=== PATIENT | male | born 1990 | race Caucasian/White ===

== ENCOUNTER 2017-03-29 23:24 | Emergency (ER) | payer MEDICAID, OTHER ==
[~2017-03-29] VITALS: Ht 177.8 cm; Wt 77.3 kg
[~2017-03-29 23:24] MED LIST: NO HOME MEDS
[2017-03-30] MEDS ORDERED: LIDOcaine 1.5% w/epinephrine 1:200,000 5ml ampul IJ ONE
[2017-03-30 00:38] VITALS: BP 137/84
== END 2017-03-30 00:40 | disposition home or self-care (01) ==
LOC: ER 23:24
DX: S31.821A Laceration without foreign body of left buttock, initial encounter (principal); Z72.0 Tobacco use; Z59.0 Homelessness; Z56.0 Unemployment, unspecified; W26.0XXA Contact with knife, initial encounter; Y93.89 Activity, other specified; Y92.481 Parking lot as the place of occurrence of the external cause; Y99.8 Other external cause status
CPT/HCPCS: 12002; 99283; A6255; J3490

== ENCOUNTER 2017-03-30 05:23 | Inpatient (IN) | payer MEDICAID, OTHER ==
[~2017-03-30] VITALS: Ht 177.8 cm; Wt 79.1 kg
[2017-03-30 06:19] LABS: BASOPHILS % (AUTO) 0.3 % (0-1); EOSINOPHILS % (AUTO) 0.4 % (0-6); HEMATOCRIT 36.2 % (42.0-52.0); HEMOGLOBIN 12.6 g/dl (14.0-17.9); LYMPHOCYTES # (AUTO) 1.4 X10'3 (1.1-4.8); LYMPHOCYTES % (AUTO) 14.6 % (21-51); MEAN CORPUSCULAR HEMOGLOBIN 29.4 PG (27.0-31.0); MEAN CORPUSCULAR HGB CONC 34.9 % (33.0-36.5); MEAN CORPUSCULAR VOLUME 84.2 FL (78-98); MEAN PLATELET VOLUME 8.2 FL (7.4-10.4); MONOCYTES # (AUTO) 0.7 X10'3 (0-0.9); MONOCYTES % (AUTO) 7.3 % (2-12); NEUTROPHILS # (AUTO) 7.4 X10'3 (1.8-7.7); NEUTROPHILS % (AUTO) 77.4 % (42-75); PLATELET COUNT 213 X10'3 (140-440); RED BLOOD COUNT 4.29 X10'6 (4.70-6.10); RED CELL DISTRIBUTION WIDTH 14.2 % (11.5-14.5); WHITE BLOOD COUNT 9.5 X10'3 (4.5-11.0)
[2017-03-30 06:30] LABS: INR 1.1 INR; PARTIAL THROMBOPLASTIN TIME 29 SECONDS (22-32); PROTHROMBIN TIME 10.9 SECONDS (9.0-12.0)
[2017-03-30 06:34] LABS: ALANINE AMINOTRANSFERASE 192 U/L (12-78); ALBUMIN 3.4 G/DL (3.4-5.0); ALBUMIN/GLOBULIN RATIO 1.1 (1.1-1.5); ALKALINE PHOSPHATASE 90 IU/L (46-116); ANION GAP 8 (8-16); ASPARTATE AMINO TRANSFERASE 65 U/L (10-37); BILIRUBIN,TOTAL 0.6 MG/DL (0.1-1.0); BLOOD UREA NITROGEN 14 MG/DL (7-18); BUN/CREATININE RATIO 16.3 (5.4-32.0); CALCIUM 8.4 MG/DL (8.5-10.1); CHLORIDE 106 MMOL/L (99-107); CREATININE 0.86 MG/DL (0.60-1.10); GLUCOSE 131 MG/DL (70-104); POTASSIUM 3.4 MMOL/L (3.5-5.1); SODIUM 144 MMOL/L (135-145); TOTAL CARBON DIOXIDE 29.7 MMOL/L (24-32); TOTAL PROTEIN 6.6 G/DL (6.4-8.2); eGFR > 90 ML/MIN
[2017-03-30] MEDS ORDERED: tranexamic acid inj. 1,000 MG in normal saline 100ml IV soln 90 ML IV ONE (06:35)
[2017-03-30] MEDS ORDERED: iohexol 300mg/ml 100ml inj. ONE (07:52)
[2017-03-30] MEDS ORDERED: vancomycin/NS 1 GM ADD-VANTAGE 250 ML IV SCH (08:00)
[2017-03-30] MEDS ORDERED: dextrose 50%-water 50ml dispensing syringe IV PRN (08:30)
[2017-03-30] MEDS ORDERED: magnesium 4gm in 100ml NS 100 ML IV PRN (08:30)
[2017-03-30] MEDS ORDERED: LORazepam 2 mg/ml vial IV PRN (08:30)
[2017-03-30] MEDS ORDERED: ondansetron/PF 4mg/2ml inj IV PRN (08:30)
[2017-03-30] MEDS ORDERED: magnesium 2GM in 50ml NS 50 ML IV PRN (08:30)
[2017-03-30] MEDS ORDERED: haloperidol lactate 5mg/ml inj IM PRN (08:30)
[2017-03-30] MEDS ORDERED: LORazepam 1 MG tablet PO PRN (08:30)
[2017-03-30] MEDS ORDERED: haloperidol 5mg tablet PO PRN (08:30)
[2017-03-30] MEDS ORDERED: potassium Cl 40MEQ/NS 500ml 500 ML IV PRN ×2 (08:30)
[2017-03-30] MEDS ORDERED: thiamine 100mg/ml 2ml inj. IV ONE (08:30)
[2017-03-30] MEDS ORDERED: morphine 2 MG/ML inj. syringe IV PRN ×2 (08:30)
[2017-03-30] MEDS ORDERED: magnesium hydroxide 30ml (MOM) UD suspension PO PRN (08:30)
[2017-03-30] MEDS ORDERED: HYDROcodone/acetaminophen 5mg/325mg tablet PO PRN (08:30)
[2017-03-30] MEDS ORDERED: magnesium Cl slow-release 64mg tablet PO PRN (08:30)
[2017-03-30] MEDS ORDERED: potassium Cl 20 mEq SR tablet PO PRN ×2 (08:30)
[2017-03-30] MEDS ORDERED: mag hydrox/Alum hydrox/simeth 30ml oral suspension PO PRN (08:30)
[2017-03-30] MEDS ORDERED: acetaminophen 325mg tablet PO PRN ×2 (08:30)
[2017-03-30 09:39] VITALS: BP 119/75
[2017-03-30 11:00] VITALS: BP 109/71
[2017-03-30] MEDS: normal saline 1000ml 1,000 ML IV SCH ×2 (11:38→18:26)
[2017-03-30] MEDS: nicotine 14mg patch - 24hr TD SCH (12:44)
[2017-03-30] MEDS: vancomycin inj 1,250 MG in normal saline 250ml IV soln 250 ML IV SCH ×2 (12:44→21:31)
[2017-03-30] MEDS: lactobacillus rhamnosus 10,000 MMU CELLS/CAPSULE PO SCH (17:25)
[2017-03-30 19:00] VITALS: BP 110/78
[2017-03-30] MEDS: HYDROcodone/acetaminophen 10/325mg tab PO PRN (19:16)
[2017-03-30] MEDS ORDERED: temazepam 15mg capsule PO PRN (21:00)
[2017-03-31] VITALS (17 sets, daily range): BP systolic 99–125; BP diastolic 54–78
[2017-03-31] MEDS: normal saline 1000ml 1,000 ML IV SCH ×3 (04:26→12:03)
[2017-03-31] MEDS: vancomycin inj 1,250 MG in normal saline 250ml IV soln 250 ML IV SCH ×2 (04:46→12:46)
[2017-03-31 05:20] LABS: BASOPHILS % (AUTO) 0.4 % (0-1); EOSINOPHILS # (AUTO) 0.1 X10'3 (0-0.9); EOSINOPHILS % (AUTO) 1.9 % (0-6); HEMOGLOBIN 12.1 g/dl (14.0-17.9); LYMPHOCYTES # (AUTO) 2.2 X10'3 (1.1-4.8); LYMPHOCYTES % (AUTO) 29.3 % (21-51); MEAN CORPUSCULAR HEMOGLOBIN 29.4 PG (27.0-31.0); MEAN CORPUSCULAR HGB CONC 34.6 % (33.0-36.5); MEAN CORPUSCULAR VOLUME 85.1 FL (78-98); MEAN PLATELET VOLUME 9.1 FL (7.4-10.4); MONOCYTES # (AUTO) 1.1 X10'3 (0-0.9); NEUTROPHILS % (AUTO) 53.4 % (42-75); PLATELET COUNT 186 X10'3 (140-440); RED BLOOD COUNT 4.11 X10'6 (4.70-6.10); RED CELL DISTRIBUTION WIDTH 14.5 % (11.5-14.5); WHITE BLOOD COUNT 7.5 X10'3 (4.5-11.0)
[2017-03-31 05:54] LABS: ALANINE AMINOTRANSFERASE 158 U/L (12-78); ALBUMIN/GLOBULIN RATIO 0.9 (1.1-1.5); ALKALINE PHOSPHATASE 83 IU/L (46-116); ANION GAP 8 (8-16); ASPARTATE AMINO TRANSFERASE 52 U/L (10-37); BILIRUBIN,TOTAL 0.7 MG/DL (0.1-1.0); BLOOD UREA NITROGEN 10 MG/DL (7-18); BUN/CREATININE RATIO 16.1 (5.4-32.0); CALCIUM 8.4 MG/DL (8.5-10.1); CHLORIDE 106 MMOL/L (99-107); CREATININE 0.62 MG/DL (0.60-1.10); GLUCOSE 94 MG/DL (70-104); MAGNESIUM 1.7 MG/DL (1.5-2.4); POTASSIUM 4.2 MMOL/L (3.5-5.1); SODIUM 142 MMOL/L (135-145); TOTAL CARBON DIOXIDE 27.9 MMOL/L (24-32); TOTAL PROTEIN 6.3 G/DL (6.4-8.2); eGFR > 90 ML/MIN
[2017-03-31] MEDS ORDERED: VANCOMYCIN LEVEL IV ONE ×2 (07:30→12:30)
[2017-03-31] MEDS: lactobacillus rhamnosus 10,000 MMU CELLS/CAPSULE PO SCH ×2 (07:30→16:28)
[2017-03-31] MEDS: pantoprazole 40mg Tablet.DR PO SCH (07:30)
[2017-03-31] MEDS: K and/or MAG REPLACEMENT MC SCH (08:00)
[2017-03-31] MEDS: nicotine 14mg patch - 24hr TD SCH (08:00)
[2017-03-31] MEDS ORDERED: enoxaparin 40mg/0.4ml syringe SUBCUT SCH (08:00)
[2017-03-31] MEDS ORDERED: sevoflurane 250ml liquid IH ONE (09:33)
[2017-03-31] MEDS ORDERED: fentaNYL/PF 50MCG/1 ML 2ML syringe ONE (09:38)
[2017-03-31] MEDS ORDERED: midazolam 2 mg/2 ml injection ONE (09:39)
[2017-03-31] MEDS ORDERED: rocuronium 10mg/ml inj IV ONE (09:42)
[2017-03-31] MEDS ORDERED: propofol inj 20 ML IV ONE (09:42)
[2017-03-31] MEDS ORDERED: ringers solution, lacted 1,000 ML IV SCH (10:09)
[2017-03-31] MEDS ORDERED: meperidine/PF 50mg/ml syringe IV PRN ×3 (10:10)
[2017-03-31] MEDS ORDERED: ondansetron/PF 4mg/2ml inj IV PRN (10:10)
[2017-03-31] MEDS ORDERED: proCHLORperazine 10 MG/2 ml inj IV PRN (10:10)
[2017-03-31] MEDS ORDERED: neostigmine methylsulfate 1 MG/ML 10ml vial ONE (10:10)
[2017-03-31] MEDS ORDERED: morphine 2 MG/ML inj. syringe IV PRN ×2 (10:10)
[2017-03-31] MEDS ORDERED: glycopyrrolate 0.2mg/ml inj ONE (10:11)
[2017-03-31] MEDS ORDERED: HYDROcodone/acetaminophen 10/325mg tab PO PRN (10:35)
[2017-03-31] MEDS: cefazolin 1gm/NS 100mL 100 ML IV SCH (16:26)
[2017-03-31] MEDS: vancomycin/NS 1 GM ADD-VANTAGE 250 ML IV SCH (19:16)
[2017-03-31] MEDS: HYDROcodone/acetaminophen 10/325mg tab PO PRN (19:17)
[2017-03-31 21:08] LABS: BASOPHILS % (AUTO) 0.3 % (0-1); EOSINOPHILS # (AUTO) 0.1 X10'3 (0-0.9); EOSINOPHILS % (AUTO) 0.8 % (0-6); HEMATOCRIT 34.1 % (42.0-52.0); HEMOGLOBIN 11.6 g/dl (14.0-17.9); LYMPHOCYTES # (AUTO) 1.7 X10'3 (1.1-4.8); LYMPHOCYTES % (AUTO) 21.5 % (21-51); MEAN CORPUSCULAR HGB CONC 33.9 % (33.0-36.5); MEAN CORPUSCULAR VOLUME 85.6 FL (78-98); MEAN PLATELET VOLUME 9.1 FL (7.4-10.4); MONOCYTES # (AUTO) 0.8 X10'3 (0-0.9); MONOCYTES % (AUTO) 10.6 % (2-12); NEUTROPHILS # (AUTO) 5.2 X10'3 (1.8-7.7); NEUTROPHILS % (AUTO) 66.8 % (42-75); PLATELET COUNT 200 X10'3 (140-440); RED BLOOD COUNT 3.98 X10'6 (4.70-6.10); RED CELL DISTRIBUTION WIDTH 14.1 % (11.5-14.5); WHITE BLOOD COUNT 7.8 X10'3 (4.5-11.0)
[2017-04-01] VITALS: BP 123/66
[2017-04-01] MEDS: cefazolin 1gm/NS 100mL 100 ML IV SCH (00:07)
[2017-04-01] MEDS: normal saline 1000ml 1,000 ML IV SCH (00:13)
[2017-04-01] MEDS: vancomycin/NS 1 GM ADD-VANTAGE 250 ML IV SCH ×4 (00:54→19:13)
[2017-04-01 04:00] VITALS: BP 118/77
[2017-04-01 04:47] LABS: BASOPHILS % (AUTO) 0.3 % (0-1); EOSINOPHILS # (AUTO) 0.1 X10'3 (0-0.9); EOSINOPHILS % (AUTO) 1.5 % (0-6); HEMATOCRIT 31.4 % (42.0-52.0); HEMOGLOBIN 10.8 g/dl (14.0-17.9); LYMPHOCYTES # (AUTO) 2.1 X10'3 (1.1-4.8); LYMPHOCYTES % (AUTO) 26.2 % (21-51); MEAN CORPUSCULAR HEMOGLOBIN 29.1 PG (27.0-31.0); MEAN CORPUSCULAR HGB CONC 34.5 % (33.0-36.5); MEAN CORPUSCULAR VOLUME 84.3 FL (78-98); MEAN PLATELET VOLUME 8.9 FL (7.4-10.4); MONOCYTES % (AUTO) 12.9 % (2-12); NEUTROPHILS # (AUTO) 4.7 X10'3 (1.8-7.7); NEUTROPHILS % (AUTO) 59.1 % (42-75); PLATELET COUNT 186 X10'3 (140-440); RED BLOOD COUNT 3.72 X10'6 (4.70-6.10); RED CELL DISTRIBUTION WIDTH 13.9 % (11.5-14.5)
[2017-04-01 05:26] LABS: ALANINE AMINOTRANSFERASE 125 U/L (12-78); ALBUMIN 2.7 G/DL (3.4-5.0); ALBUMIN/GLOBULIN RATIO 0.8 (1.1-1.5); ALKALINE PHOSPHATASE 77 IU/L (46-116); ANION GAP 9 (8-16); ASPARTATE AMINO TRANSFERASE 44 U/L (10-37); BILIRUBIN,TOTAL 0.5 MG/DL (0.1-1.0); BLOOD UREA NITROGEN 8 MG/DL (7-18); BUN/CREATININE RATIO 12.3 (5.4-32.0); CHLORIDE 105 MMOL/L (99-107); CREATININE 0.65 MG/DL (0.60-1.10); GLUCOSE 92 MG/DL (70-104); MAGNESIUM 1.5 MG/DL (1.5-2.4); POTASSIUM 3.7 MMOL/L (3.5-5.1); SODIUM 141 MMOL/L (135-145); TOTAL CARBON DIOXIDE 26.6 MMOL/L (24-32); TOTAL PROTEIN 5.9 G/DL (6.4-8.2); eGFR > 90 ML/MIN
[2017-04-01] MEDS: K and/or MAG REPLACEMENT MC SCH (06:38)
[2017-04-01 07:00] VITALS: BP 126/74
[2017-04-01] MEDS: nicotine 14mg patch - 24hr TD SCH (07:39)
[2017-04-01] MEDS: lactobacillus rhamnosus 10,000 MMU CELLS/CAPSULE PO SCH ×2 (07:39→17:35)
[2017-04-01] MEDS: pantoprazole 40mg Tablet.DR PO SCH (07:39)
[2017-04-01 11:00] VITALS: BP 109/65
[2017-04-01 11:57] LABS: HEP B CORE AB, IGM Negative (Negative); HEP B CORE AB, TOT Negative (Negative); HEPATITIS C ANTIBODY >11.0 s/co ratio (0.0-0.9)
[2017-04-01] MEDS ORDERED: VANCOMYCIN LEVEL IV NR (12:30)
[2017-04-01] MEDS: HYDROcodone/acetaminophen 10/325mg tab PO PRN (19:12)
[2017-04-01 20:00] VITALS: BP 114/70
[2017-04-02] VITALS: BP 109/68
[2017-04-02] MEDS: vancomycin/NS 1 GM ADD-VANTAGE 250 ML IV SCH ×4 (01:14→19:30)
[2017-04-02 05:08] LABS: BASOPHILS % (AUTO) 0.6 % (0-1); EOSINOPHILS # (AUTO) 0.1 X10'3 (0-0.9); HEMATOCRIT 32.4 % (42.0-52.0); HEMOGLOBIN 11.1 g/dl (14.0-17.9); LYMPHOCYTES % (AUTO) 34.5 % (21-51); MEAN CORPUSCULAR HEMOGLOBIN 29.1 PG (27.0-31.0); MEAN CORPUSCULAR HGB CONC 34.2 % (33.0-36.5); MEAN CORPUSCULAR VOLUME 84.9 FL (78-98); MEAN PLATELET VOLUME 8.7 FL (7.4-10.4); MONOCYTES # (AUTO) 0.8 X10'3 (0-0.9); MONOCYTES % (AUTO) 14.5 % (2-12); NEUTROPHILS # (AUTO) 2.8 X10'3 (1.8-7.7); NEUTROPHILS % (AUTO) 48.4 % (42-75); PLATELET COUNT 195 X10'3 (140-440); RED BLOOD COUNT 3.82 X10'6 (4.70-6.10); RED CELL DISTRIBUTION WIDTH 13.8 % (11.5-14.5); WHITE BLOOD COUNT 5.7 X10'3 (4.5-11.0)
[2017-04-02 05:29] LABS: ALANINE AMINOTRANSFERASE 118 U/L (12-78); ALBUMIN 2.9 G/DL (3.4-5.0); ALBUMIN/GLOBULIN RATIO 0.8 (1.1-1.5); ALKALINE PHOSPHATASE 78 IU/L (46-116); ANION GAP 8 (8-16); ASPARTATE AMINO TRANSFERASE 59 U/L (10-37); BILIRUBIN,TOTAL 0.6 MG/DL (0.1-1.0); BLOOD UREA NITROGEN 8 MG/DL (7-18); BUN/CREATININE RATIO 14.3 (5.4-32.0); CALCIUM 8.8 MG/DL (8.5-10.1); CHLORIDE 105 MMOL/L (99-107); CREATININE 0.56 MG/DL (0.60-1.10); GLUCOSE 93 MG/DL (70-104); MAGNESIUM 1.8 MG/DL (1.5-2.4); POTASSIUM 4.1 MMOL/L (3.5-5.1); SODIUM 142 MMOL/L (135-145); TOTAL CARBON DIOXIDE 29.2 MMOL/L (24-32); TOTAL PROTEIN 6.5 G/DL (6.4-8.2); eGFR > 90 ML/MIN
[2017-04-02 07:05] VITALS: BP 106/47
[2017-04-02] MEDS: pantoprazole 40mg Tablet.DR PO SCH (07:52)
[2017-04-02] MEDS: lactobacillus rhamnosus 10,000 MMU CELLS/CAPSULE PO SCH ×2 (07:53→18:17)
[2017-04-02] MEDS: nicotine 14mg patch - 24hr TD SCH (07:58)
[2017-04-02] MEDS: K and/or MAG REPLACEMENT MC SCH (08:00)
[2017-04-02 11:00] VITALS: BP 107/60
[2017-04-02 20:00] VITALS: BP 135/75
== END 2017-04-02 22:00 | disposition left against medical advice (07) | DRG 384 ==
LOC: ER 05:23 → ED HOLD 08:10 → EEVIPCON 08:10 → SUR 3N 09:23
PROVIDERS: ADMIT Internal Medicine; ATTEND Family Medicine
PROC: BW2G1ZZ Computerized Tomography (CT Scan) of Pelvic Region using Low Osmolar Contrast (ICD-10-PCS; 2017-03-30)
PROC: 0Y910ZZ Drainage of Left Buttock, Open Approach (ICD-10-PCS; principal; 2017-03-31 09:33)
DX: S30.0XXA Contusion of lower back and pelvis, initial encounter (principal); L02.31 Cutaneous abscess of buttock; F17.200 Nicotine dependence, unspecified, uncomplicated; Z53.21 Procedure and treatment not carried out due to patient leaving prior to being seen by health care provider; R74.8 Abnormal levels of other serum enzymes; G40.909 Epilepsy, unspecified, not intractable, without status epilepticus; Z59.0 Homelessness
CPT/HCPCS: 36415; 72193; 80053; 80202; 82948; 83605; 83735; 85025; 85610; 85730; 86704; 86705; 86706; 86803; 86885; 86900; 86901; 87040; 87070; 87075; 96365; 99285; A6253; A6258; A6266; A6449; A7000; J0690; J2250; J2704; J2710; J3010; J3370; J3411; J3490; J7030; J7120; Q9967

== ENCOUNTER 2018-03-05 11:03 | Emergency (ER) | payer MEDICAID ==
[~2018-03-05] VITALS: Ht 177.8 cm; Wt 81.8 kg
[2018-03-05 11:20] VITALS: BP 144/89
[2018-03-05] MEDS ORDERED: NAPR-56 PO (11:39)
[2018-03-05] MEDS ORDERED: PENI250T2 PO (11:39)
== END 2018-03-05 11:53 | disposition home or self-care (01) ==
LOC: ER 11:04
DX: K08.89 Other specified disorders of teeth and supporting structures (principal); R22.0 Localized swelling, mass and lump, head; Z59.0 Homelessness; Z56.0 Unemployment, unspecified
CPT/HCPCS: 99283

== ENCOUNTER 2018-05-07 18:56 | Emergency (ER) | payer MEDICAID ==
[~2018-05-07] VITALS: Ht 175.3 cm; Wt 98.3 kg
[2018-05-07 20:00] LABS: BASOPHILS # (AUTO) 0.1 X10'3 (0-0.2); BASOPHILS % (AUTO) 0.7 % (0-1); EOSINOPHILS # (AUTO) 0.1 X10'3 (0-0.9); EOSINOPHILS % (AUTO) 1.5 % (0-6); HEMATOCRIT 48.4 % (42.0-52.0); HEMOGLOBIN 16.2 g/dl (14.0-17.9); LYMPHOCYTES # (AUTO) 3.7 X10'3 (1.1-4.8); LYMPHOCYTES % (AUTO) 43.1 % (21-51); MEAN CORPUSCULAR HEMOGLOBIN 28.9 PG (27.0-31.0); MEAN CORPUSCULAR HGB CONC 33.4 g/dL (33.0-36.5); MEAN CORPUSCULAR VOLUME 86.4 FL (78-98); MEAN PLATELET VOLUME 9.2 FL (7.4-10.4); MONOCYTES % (AUTO) 11.5 % (2-12); NEUTROPHILS # (AUTO) 3.7 X10'3 (1.8-7.7); NEUTROPHILS % (AUTO) 43.2 % (42-75); PLATELET COUNT 212 X10'3 (140-440); RED CELL DISTRIBUTION WIDTH 13.6 % (11.5-14.5); WHITE BLOOD COUNT 8.5 X10'3 (4.5-11.0)
[2018-05-07 20:03] LABS: ALANINE AMINOTRANSFERASE 75 U/L (12-78); ALBUMIN 3.8 G/DL (3.4-5.0); ALBUMIN/GLOBULIN RATIO 1.1 (1.1-1.5); ALKALINE PHOSPHATASE 86 IU/L (46-116); ANION GAP 8 (8-16); ASPARTATE AMINO TRANSFERASE 37 U/L (10-37); BILIRUBIN,TOTAL 0.5 MG/DL (0.1-1.0); BLOOD UREA NITROGEN 7 MG/DL (7-18); BUN/CREATININE RATIO 7.7 (5.4-32.0); CALCIUM 9.3 MG/DL (8.5-10.1); CHLORIDE 105 MMOL/L (99-107); CREATININE 0.91 MG/DL (0.60-1.10); GLUCOSE 98 MG/DL (70-104); POTASSIUM 3.6 MMOL/L (3.5-5.1); SODIUM 143 MMOL/L (135-145); TOTAL CARBON DIOXIDE 30.2 MMOL/L (24-32); TOTAL PROTEIN 7.4 G/DL (6.4-8.2); eGFR > 90 ML/MIN
[2018-05-07 20:11] LABS: PROTHROMBIN TIME 9.8 SECONDS (9.0-12.0)
[2018-05-07 22:02] LABS: CLARITY,URINE CLEAR (Clear); COLOR,URINE YELLOW (Yellow); GLUCOSE, URINE NEGATIVE (Neg); KETONES,URINE TRACE mg/dl (Neg); LEUKOCYTE ESTERASE ,URINE NEGATIVE (Neg); NITRITES, URINE NEGATIVE (Neg); OCCULT BLOOD,URINE NEGATIVE (Neg); PROTEIN,URINE NEGATIVE (Neg)
[2018-05-07 22:07] LABS: UA COLLECTION TYPE CLN CATCH MIDSTREAM
[2018-05-07] MEDS ORDERED: NAPR-56 PO (22:17)
[2018-05-07] MEDS ORDERED: ketorolac trometh inj. 60 MG/2 ML VIAL IM ONE (22:20)
[2018-05-07 22:40] VITALS: BP 115/66
== END 2018-05-07 22:43 | disposition home or self-care (01) ==
LOC: ER 18:58
DX: R10.9 Unspecified abdominal pain (principal); Z59.0 Homelessness; Z56.0 Unemployment, unspecified
CPT/HCPCS: 36415; 80053; 81003; 85025; 85610; 96372; 99283; J1885

== ENCOUNTER 2018-07-07 23:09 | Emergency (ER) | payer MEDICAID ==
[~2018-07-07] VITALS: Ht 175.3 cm; Wt 88.0 kg
--- NOTE | 2018-07-07 23:59 | NUR ---
PT NOT IN LOBBY AT TIME TO ROOM. CALL PLACED TO NUMBER ON FILE. WOMEN ANSWERING PHONE REPORTS WRONG NUMBER. DR. QUINONES INFORMED.
[2018-07-08] MEDS ORDERED: BUPIVAcaine 0.5% W/EPI /PF 30ml vial SQ STA (00:49)
[2018-07-08] MEDS ORDERED: amox tr/potassium clavulanate 875/125mg TAB PO ONE (00:50)
[2018-07-08] MEDS ORDERED: AMOX-580 PO (01:05)
[2018-07-08 01:11] VITALS: BP 135/75
== END 2018-07-08 01:15 | disposition home or self-care (01) ==
LOC: ER 23:10
DX: K04.7 Periapical abscess without sinus (principal); K02.9 Dental caries, unspecified; Z60.2 Problems related to living alone; Z59.0 Homelessness; Z56.0 Unemployment, unspecified; Z79.899 Other long term (current) drug therapy
CPT/HCPCS: 41800; 99283

== ENCOUNTER 2018-09-17 23:06 | Emergency (ER) | payer MEDICAID ==
[~2018-09-17] VITALS: Ht 175.3 cm; Wt 85.5 kg
[2018-09-17 23:10] VITALS: BP 133/88
[2018-09-17] MEDS ORDERED: CEPH-571 PO (23:28)
== END 2018-09-17 23:40 | disposition home or self-care (01) ==
LOC: ER 23:07
DX: L02.416 Cutaneous abscess of left lower limb (principal); Z86.69 Personal history of other diseases of the nervous system and sense organs; Z60.2 Problems related to living alone; Z56.0 Unemployment, unspecified
CPT/HCPCS: 10060; 99283

== ENCOUNTER 2019-11-09 09:47 | Emergency (ER) | payer MEDICAID ==
[~2019-11-09] VITALS: Ht 177.8 cm; Wt 105.0 kg
[~2019-11-09 09:47] MED LIST changes: +CEPH-571 PO
[2019-11-09] MEDS ORDERED: amox tr/potassium clavulanate 875/125mg TAB PO ONE (11:00)
[2019-11-09] MEDS ORDERED: naproxen 500mg tablet PO ONE (11:00)
[2019-11-09] MEDS ORDERED: HYDROcodone/acetaminophen 5mg/325mg tablet PO ONE (11:00)
[2019-11-09] MEDS ORDERED: NAPR-56 PO (11:01)
[2019-11-09] MEDS ORDERED: HYDR-4383 PO (11:01)
[2019-11-09] MEDS ORDERED: AMOX-117 PO (11:01)
[2019-11-09 11:13] VITALS: BP 126/84
== END 2019-11-09 11:14 | disposition home or self-care (01) ==
LOC: ER 09:49
DX: K04.7 Periapical abscess without sinus (principal); L03.211 Cellulitis of face; K02.9 Dental caries, unspecified; Z86.69 Personal history of other diseases of the nervous system and sense organs; Z60.2 Problems related to living alone; Z79.2 Long term (current) use of antibiotics; Z79.899 Other long term (current) drug therapy
CPT/HCPCS: 99284